=== PATIENT | male | born 1975 | race Caucasian/White ===

== ENCOUNTER 2020-05-06 11:20 | Emergency (ER) | payer OTHER ==
[~2020-05-06] VITALS: Ht 172.7 cm; Wt 68.9 kg
[~2020-05-06 11:20] MED LIST: KETO10TA2 PO; NORFLEX100MG PO
[2020-05-06] MEDS ORDERED: VOLTAREN100 GM TOP (15:20)
[2020-05-06] MEDS ORDERED: SKELAXIN800 MG PO (15:20)
[2020-05-06] MEDS ORDERED: KETO10TA2 PO (15:20)
== END 2020-05-06 15:41 ==
LOC: ER 11:20
DX: M62.830 Muscle spasm of back (principal); R53.1 Weakness

== ENCOUNTER 2024-08-10 09:04 | Emergency (ER) | payer OTHER ==
[~2024-08-10] VITALS: Ht 175.3 cm; Wt 69.9 kg
[~2024-08-10 09:04] MED LIST changes: +ROBAXIN-750750 MG PO; +SKELAXIN800 MG PO; +VOLTAREN100 GM TOP
[2024-08-10 09:36] VITALS: BP 105/68; O2SAT 100
[2024-08-10] MEDS ORDERED: AZITHROMYCIN500 MG PO (09:39)
[2024-08-10] MEDS ORDERED: ATORVASTATIN CA20 MG PO (09:39)
[2024-08-10] MEDS ORDERED: 0.9 % SODIUM CHLORIDE 1,000 ML IV SCH (10:00)
[2024-08-10 11:07] LABS: HEMATOCRIT 43.4 % (39.0-48.0); HEMOGLOBIN 15.1 g/dL (13-16.00); MEAN CELL VOLUME 87.4 fL (80.0-100.00); MEAN CORPUSCULAR HEMOGLOBIN 30.5 pg (27.00-32.0); MEAN CORPUSCULAR HGB CONC 34.9 g/dl (32.0-36.0); RED BLOOD COUNT 4.96 M/uL (4.00-6.00); RED CELL DISTRIBUTION WIDTH 12.6 % (11.5-14.5)
[2024-08-10 11:11] LABS: CALCIUM 9.3 mg/dL (8.5-10.1); CREATININE SERUM 1.06 mg/dL (0.70-1.30); GFR 74.89; POTASSIUM 4.04 mEq/L (3.5-5.1)
[2024-08-10 11:41] LABS: PLATELET COUNT 72 K/uL (150-450)
[2024-08-10 12:04] LABS: PH,URINE 5.5 (5.0-8.0); URINE APPEARANCE Clear; URINE BILIRRUBIN Moderate (NEGATIVE); URINE COLOR Dark Yellow; URINE GLUCOSE Negative (NEGATIVE); URINE KETONE Trace (NEGATIVE); URINE LEUKOCYTE Trace; URINE NITRATE Negative
[2024-08-10 12:08] LABS: URINE BACTERIA 26.4 uL (0.0-1933); URINE EPITHELIAL CELLS 13.2 uL (0.0-38.8); URINE RBC 12.5 uL (0.0-20.8); URINE WBC 7.7 uL (0.0-23.2)
[2024-08-10 12:15] LABS: URINE BLOOD TRACES; URINE CAST 0.76 uL (0.0-1.40); URINE PROTEIN 100 (NEGATIVE)
== END 2024-08-10 15:48 | disposition home or self-care (01) ==
LOC: ER 09:06
PROVIDERS: Emergency Medicine
DX: A90 Dengue fever [classical dengue] (principal); R10.84 Generalized abdominal pain